=== PATIENT | female | born 1970 | race Hispanic/Latino ===

== ENCOUNTER 2018-08-05 23:43 | Emergency (ER) | payer OTHER ==
[~2018-08-05] VITALS: Ht 157.5 cm; Wt 70.8 kg
--- NOTE | 2018-08-06 01:11 | Diagnostic Imaging Report ---
FOOT RIGHT COMPLETE, ANKLE 3 + VIEWS RIGHT HISTORY: Rolled ankle. Pain. COMPARISON: None available. FINDINGS: Bones: No acute displaced fracture. Os peroneum. Osseous alignment is within normal limits. Joints: The joint spaces are well-maintained. Soft tissues: The soft tissues appear unremarkable. IMPRESSION: No acute radiographic abnormality. Signed by: DR. Jeff Edwards MD on 08/06/2018 1:08 AM
== END 2018-08-06 01:43 | disposition home or self-care (01) ==
LOC: ER 23:43
DX: S93.491A Sprain of other ligament of right ankle, initial encounter (principal); S93.621A Sprain of tarsometatarsal ligament of right foot, initial encounter; X50.1XXA Overexertion from prolonged static or awkward postures, initial encounter; Y92.008 Other place in unspecified non-institutional (private) residence as the place of occurrence of the external cause
CPT/HCPCS: 99283

== ENCOUNTER → 2019-01-24 | Day surgery (SDC) | payer OTHER ==
[~2019-01-24] MED LIST: BENTYL PO; GLUCAGON FOR INJ 1 MG VIAL ONE; HYOSCYAMINE SULFATE 0.5 MG/ML INJ ONE; LIDOCAINE HCL 2% LOCAL INJ 5 ML SDV VIAL INJ ONE; MIRALAX17 GM PO; PROPOFOL IV EMULSION 10 MG/ML 50 ML VIAL ONE
--- OUTSIDE RECORDS SUMMARY | 2019-01-24 08:26 | XMS REPORT ---
[facility] Address Unknown Phone Unavailable Care Team Providers Care Manager Biostatistics Name Role Phone Christine VELEZ Unavailable Unavailable Problems This patient has no known problems. Allergies, Adverse Reactions, Alerts This patient has no known allergies or adverse reactions. Medications This patient has no known medications. Results Test Description Test Time Test Comments Text Results Atomic Results Result Comments FOOT RIGHT COMPLETE 2018-08-06 01:05:00 [place] [address] Patient Name: GORDON BOOTH MR #: [id number] : 1970 Age/Sex: 48/F Req #: [id number] Adm Physician: Ordered by: MONICA VELEZ MD Report #: [id number] Location: ER Room/Bed: Procedure: [id number] DX/FOOT RIGHT COMPLETE Exam Date: 08/06/18 Exam Time: 44 REPORT STATUS: Signed FOOT RIGHT COMPLETE, ANKLE 3 + VIEWS RIGHT HIS TORY: Rolled ankle. Pain. COMPARISON: None available. FINDINGS: Bones: No acute displaced fracture. Os peroneum. Osseous alignment is within normal limits. Joints: The joint spaces are well-maintained. Soft tissues: The soft tissues appear unremarkable. IMPRESSION: No acute radiographic abnormality. Signed by: DR. Jeff Edwards MD on 08/06/2018 1:08 AM Dictated By: JEFF EDWARDS MD 7 Transcribed By: KAREN on 08/06/18107 COPY TO: MONICA VELEZ MD ANKLE 3 + VIEWS RIGHT 2018-08-06 01:05:00 [place] [address] Patient Name: GORDON BOOTH MR #: [id number] : 1970 Age/Sex: 48/F Req #: [id number] Adm Physician: Ordered by: MONICA VELEZ MD Report #: [id number] Location: ER Room/Bed: Procedure: [id number] DX/ANKLE 3 + VIEWS RIGHT Exam Date: 08/06/18 Exam Time: 44 REPORT STATUS: Signed FOOT RIGHT COMPLETE, ANKLE 3 + VIEWS RIGHT H ISTORY: Rolled ankle. Pain. COMPARISON: None available. FINDINGS: Bones: No acute displaced fracture. Os peroneum. Osseous alignment is within normal limits. Joints: The joint spaces are well- maintained. Soft tissues: The soft tissues appear unremarkable.
[2019-01-24 14:30] VITALS: BP 135/98
[2019-01-24 15:36] LABS: WBC,FECAL (FECAL LACTOFERRIN) NEGATIVE (NEGATIVE)
--- NOTE | 2019-01-24 23:20 | Operative Report ---
DATE OF PROCEDURE: 01/24/2019 SURGEON: Jeevan Nobles MD PROCEDURE: Esophagogastroduodenoscopy and colonoscopy. INDICATION FOR EGD: Acid reflux. INDICATIONS FOR COLONOSCOPY: Lower abdominal pain and intermittent diarrhea. MEDICATIONS: The patient was done under MAC, please see anesthesiologist's note. PROCEDURE IN DETAIL: With the patient in left lateral decubitus position, a flexible fiberoptic Olympus gastroscope was introduced into the esophagus under direct visualization without any difficulty. There was some patchy erythema noted in distal esophagus. There was some minimal nodularity noted at the GE junction that was biopsied. The scope was then advanced with ease into the stomach. Mucosa overlying the antrum and the body revealed some diffuse erythema and low-grade to moderate edema, and biopsies were obtained and sent to stain for H pylori. Pylorus was of normal contour and shape, was intubated with ease, and the scope was advanced all the way to the second portion of the duodenum. Biopsies were obtained from the proximal second portion and duodenal bulb to rule out sprue. The scope was then withdrawn back into the stomach and retroflexed mucosa overlying the fundus and cardia appeared to be within normal limits. The scope was then straightened out, it was subsequently withdrawn. The patient tolerated the procedure well. IMPRESSION: 1. Distal esophagitis. 2. Minimal nodularity GE junction, biopsied. 3. Gastritis, biopsied and biopsies sent to stain for H pylori. 4. Rule out sprue. PLAN: Follow up histology. Initiate Protonix 40 mg one p.o. q.a.m. a.c. PROCEDURE IN DETAIL: The patient was then turned around after adequate lubrication of the anal canal, the flexible fiberoptic Olympus colonoscope was inserted into the rectum with ease and advanced all the way to the cecum. Mucosa overlying the cecum appeared to be within normal limits. The ileocecal valve was intubated and the scope was advanced into the terminal ileum. Biopsies were obtained. The scope was then withdrawn back into the colon. It was then withdrawn slowly. An approximately 4 mm sessile polyp was removed per cold snare polypectomy from the proximal ascending colon. The rest of the ascending and transverse appeared to be within normal limits. The mucosa overlying the distal descending, sigmoid, and rectum revealed some patchy mild inflammatory changes. Random biopsies were obtained. The scope was then retroflexed into the distal rectum and small internal hemorrhoids were noted, none of which was actively bleeding. The scope was then straightened out, it was subsequently withdrawn. The patient tolerated procedure well. IMPRESSION: 1. Ascending colon polyp snared. 2. Mild patchy left-sided colitis. Biopsies obtained. 3. Proctitis, mild biopsies obtained. 4. Internal hemorrhoids, none actively bleeding. PLAN: Follow up histology. Initiate Bentyl 10 mg one p.o. t.i.d. Start VSL#3 one p.o. daily. The patient might benefit from a followup colonoscopy in 5 years. Jeevan Nobles MD [facility] [place][id number] cc: MD Carly Hopkins MD
[2019-01-25 12:52] LABS: C DIFFICILE TOXIN A&B AMP PROB NEGATIVE (NEGATIVE)
== END | disposition home or self-care (01) ==
LOC: OR 08:20
PROVIDERS: ATTEND Internal Medicine Gastroenterology
DX: K63.5 Polyp of colon (principal); K51.50 Left sided colitis without complications; K62.89 Other specified diseases of anus and rectum; K64.8 Other hemorrhoids; K21.0 Gastro-esophageal reflux disease with esophagitis; R19.7 Diarrhea, unspecified; K59.00 Constipation, unspecified; R14.0 Abdominal distension (gaseous); K92.1 Melena; Z80.0 Family history of malignant neoplasm of digestive organs; Z80.8 Family history of malignant neoplasm of other organs or systems; K29.70 Gastritis, unspecified, without bleeding; R10.10 Upper abdominal pain, unspecified
CPT/HCPCS: 43239; 45378; 45380; 45385; 83630; 83993; 87045; 87177; 87328; 87493; J1610; J1980; J2001

== ENCOUNTER → 2019-02-14 | Outpatient (CLI) | payer OTHER ==
[~2019-02-14] MED LIST changes: +DIATRIZOATE MEGL/DIATRIZOA SOD 30 ML BTL PO ONE; -GLUCAGON FOR INJ 1 MG VIAL ONE; -HYOSCYAMINE SULFATE 0.5 MG/ML INJ ONE; +IOPAMIDOL 370 MG/ML 200 ML INFUS..BTL INJ ONE; -LIDOCAINE HCL 2% LOCAL INJ 5 ML SDV VIAL INJ ONE; -PROPOFOL IV EMULSION 10 MG/ML 50 ML VIAL ONE; +SODIUM CHLORIDE 0.9% 50ML 50 ML ONE
--- NOTE | 2019-02-14 12:01 | Diagnostic Imaging Report ---
EXAM: CT ABDOMEN AND PELVIS with IV CONTRAST DATE: 02/14/2019 Time stamp on Exam: 10:25 AM INDICATION: Left lower quadrant pain COMPARISON: None TECHNIQUE: The abdomen and pelvis were scanned using a multidetector helical scanner. Coronal and sagittal reformations were obtained. Routine protocol performed. Technique modification was utilized to maintain the lowest dose possible to the patient. IV Contrast: 100 cc of Isovue-370 Oral Contrast: Gastrografin intermixed with water Radiation Dose: Total DLP 331.66 mGy*cm Estimated effective dose: DLP x 0.015 x size factor FINDINGS: LOWER THORAX: No consolidations LIVER: Decreased attenuation of the liver compared to the spleen compatible with fatty infiltration. No mass is identified. BILIARY: The gallbladder is absent. No ductal dilatation. SPLEEN: No masses PANCREAS: No masses ADRENALS: No nodules KIDNEYS: Symmetric perfusion. No enhancing masses. No hydronephrosis. GI TRACT: No distention, wall thickening or evidence of obstruction. The appendix is not visualized. VESSELS: Unremarkable with patent celiac trunk, SMA, JORDANA and single renal arteries bilaterally. The portal vein and splenic vein are patent. PERITONEUM/RETROPERITONEUM: No free air or fluid LYMPH NODES: No lymphadenopathy REPRODUCTIVE ORGANS: Absent uterus and ovaries. BLADDER: Unremarkable SOFT TISSUES: Unremarkable BONES: No suspicious bone lesions. IMPRESSION: 1. No acute abnormality within the abdomen or pelvis. 2. Diffuse hepatic steatosis without mass. Signed by: Dr. Pedrito Jauregui DO on 02/14/2019 11:58 AM
== END ==
LOC: CT 08:45
PROVIDERS: ATTEND Internal Medicine Gastroenterology
DX: R10.30 Lower abdominal pain, unspecified (principal)
CPT/HCPCS: 74177; Q9967